=== PATIENT | female | born 1935 | race Caucasian/White ===

== ENCOUNTER → 2017-02-12 | Outpatient (CLI) | payer MEDICARE ==
[~2017-02-12] MED LIST: ALEN70TA7 PO; ASPI-611 PO; AZIT500T2 PO; CALC-652 PO; CODE118S2 PO; ESTR0.3T26 PO; LEVO75TA57 PO; MULT-795 PO; [UNRECOGNIZED DRUG - CODE] PO
== END ==
LOC: WC.BC 13:16
DX: Z12.31 Encounter for screening mammogram for malignant neoplasm of breast (principal)
CPT/HCPCS: 77063; G0202